=== PATIENT | female | born 1980 | race Two or more races ===

== ENCOUNTER 2017-09-06 | Day surgery (SDC) | END 2017-09-06 23:18 | disposition home or self-care (01) ==

== ENCOUNTER 2018-01-26 21:33 | Emergency (ER) | payer BC ==
[~2018-01-26] VITALS: Ht 165.1 cm; Wt 61.2 kg
[~2018-01-26 21:33] MED LIST: FOLI1; MULVITA; YAZ
[2018-01-26] MEDS ORDERED: PROG100 PO (21:47)
[2018-01-26 22:07] LABS: BASOPHILS ABSOLUTE AUTO 0.03 K/mm3 (0.00-0.23); BASOPHILS PERCENT AUTO 0 % (0-2); EOSINOPHILS ABSOLUTE AUTO 0.08 K/mm3 (0.00-0.68); EOSINOPHILS PERCENT AUTO 1 % (0-6); Hematocrit 38.5 % (33.0-51.0); Hemoglobin 12.7 g/dL (11.5-16.0); IMMATURE GRAN ABSOLUTE AUTO 0.01 K/mm3 (0.00-0.10); IMMATURE GRAN PERCENT AUTO 0 % (0-1); LYMPHOCYTES ABSOLUTE AUTO 1.41 K/mm3 (0.84-5.20); LYMPHOCYTES PERCENT AUTO 20 % (21-46); MONOCYTES PERCENT AUTO 7 % (4-13); Mean Corpuscular Volume 85 fL (80-100); Mean Platelet Volume 12.2 fL (9.1-12.4); NEUTROPHILS PERCENT AUTO 71 % (41-73); Platelet Count 148 K/mm3 (150-400); RDW Coefficient Variation 12.2 % (11.7-14.2); RDW Standard Deviation 37.6 fL (35.1-46.3); Red Blood Cell Count 4.54 M/mm3 (3.80-5.20); White Blood Cell Count 7.03 K/mm3 (4.00-11.30)
[2018-01-26 22:31] LABS: Alanine Aminotransfer (ALT/SGP 12 U/L (12-78); Albumin, Blood 3.7 g/dL (3.4-5.0); Albumin/Globulin Ratio 0.9 (0.8-1.8); Alk Phos 43 U/L (50-136); Anion Gap 8 mmol/L (6-16); Aspartate Aminotrans (AST/SGOT 17 U/L (12-37); Bilirubin, Total 0.6 mg/dL (0.1-1.0); Blood Urea Nitrogen 13 mg/dL (8-24); Bun/Creatinine Ratio 15.5 (12.0-20.0); CO2, Blood 28 mmol/L (21-32); Calcium, Blood 8.9 mg/dL (8.5-10.1); Chloride, Blood 103 mmol/L (98-108); Creatinine, Blood 0.84 mg/dL (0.40-1.00); Glomerular Filtration Rate >60 (60-); Glucose, Blood 81 mg/dL (70-99); Potassium, Blood 3.4 mmol/L (3.5-5.5); Sodium, Blood 139 mmol/L (136-145); Total Protein, Blood 7.7 g/dL (6.4-8.2)
[2018-01-26 23:02] LABS: Beta HCG, Quantitative, Serum 98188 mIU/mL (0-3)
[2018-01-26 23:46] LABS: Source, Urine Clean Catch
[2018-01-26 23:54] LABS: Bilirubin, Urine Neg (Neg); Blood, Urine 3+ (Neg); Glucose Qualitative, Urine Neg (Neg); Ketones, Urine Neg (Neg); Leukocyte Esterase, Urine Neg (Neg); Nitrite, Urine Neg (Neg); Protein, Urine Neg (Neg); Urobilinogen, Urine NORM (Normal)
[2018-01-27] LABS: Appearance, Urine Clear (Clear); Bacteria Rare /hpf; Color, Urine Yellow (P-Yellow); Red Blood Cells, Urine 0-2 /hpf (0-2); Squamous Epithelial Cells Few /hpf (Few); White Blood Cells, Urine 0-2 /hpf (0-5)
== END 2018-01-27 00:40 | disposition home or self-care (01) ==
LOC: ER 21:33
PROVIDERS: Emergency Medicine
DX: O20.9 Hemorrhage in early pregnancy, unspecified (principal); Z88.2 Allergy status to sulfonamides; Z91.040 Latex allergy status; Z79.899 Other long term (current) drug therapy; Z3A.13 13 weeks gestation of pregnancy
CPT/HCPCS: 36415; 76801; 76817; 80053; 81001; 84702; 85025; 86900; 86901; 99284-25

== ENCOUNTER 2018-08-07 05:10 | Inpatient (IN) | payer BC, MEDICARE ==
[~2018-08-07] VITALS: Ht 165.1 cm; Wt 70.0 kg
[~2018-08-07 05:10] MED LIST changes: +PROG100 PO
[2018-08-07] MEDS ORDERED: Verotin-Gr Cap1 EACH PO (05:46)
[2018-08-07 05:50] LABS: BASOPHILS ABSOLUTE AUTO 0.03 K/mm3 (0.00-0.23); BASOPHILS PERCENT AUTO 0 % (0-2); EOSINOPHILS ABSOLUTE AUTO 0.03 K/mm3 (0.00-0.68); EOSINOPHILS PERCENT AUTO 0 % (0-6); Hematocrit 39.6 % (33.0-51.0); IMMATURE GRAN ABSOLUTE AUTO 0.04 K/mm3 (0.00-0.10); IMMATURE GRAN PERCENT AUTO 1 % (0-1); LYMPHOCYTES ABSOLUTE AUTO 1.01 K/mm3 (0.84-5.20); LYMPHOCYTES PERCENT AUTO 15 % (21-46); MONOCYTES ABSOLUTE AUTO 0.55 K/mm3 (0.16-1.47); MONOCYTES PERCENT AUTO 8 % (4-13); Mean Corpuscular HGB 28.7 pg (26.0-34.0); Mean Corpuscular HGB Conc 32.8 g/dL (31.5-36.5); Mean Corpuscular Volume 87 fL (80-100); Mean Platelet Volume 12.6 fL (9.1-12.4); NEUTROPHILS ABSOLUTE AUTO 5.28 K/mm3 (1.96-9.15); NEUTROPHILS PERCENT AUTO 76 % (41-73); Platelet Count 135 K/mm3 (150-400); RDW Coefficient Variation 12.9 % (11.7-14.2); Red Blood Cell Count 4.53 M/mm3 (3.80-5.20); White Blood Cell Count 6.94 K/mm3 (4.00-11.30)
--- NOTE | 2018-08-08 07:15 | NUR ---
ASSUMED PT CARE, [facility] SECOND NURSE FOR NB, THEN TOOK OVER MOM. NB VIGORUS, SKIN TO SKIN, AT BR WELL.
--- NOTE | 2018-08-08 11:15 | NUR ---
REPORT TO KATE TEJEDA. PT RESTING, ATTEMPTED TO GET UP TP VOID, PT'S LEGS STILL NOT STRONG YET. INSTRUCTED PT TO CAALL WHEN FULL SENSATION IS BACK & WE WILL TRY AGAIN.
--- NOTE | 2018-08-08 13:45 | NUR ---
PT OVERALL DOING WELL. UP TO SHOWER. LINENS/ PAD CHANGED. FIRST PP VOID. REPORTS MINIMAL PAIN 3/10 AND DENIES NAUSEA. WILL CONTINUE TO MONITOR.
[2018-08-09 05:52] LABS: Hematocrit 35.8 % (33.0-51.0); Hemoglobin 11.6 g/dL (11.5-16.0); Mean Corpuscular HGB 29.1 pg (26.0-34.0); Mean Corpuscular HGB Conc 32.4 g/dL (31.5-36.5); Mean Platelet Volume 12.5 fL (9.1-12.4); Platelet Count 131 K/mm3 (150-400); RDW Coefficient Variation 12.6 % (11.7-14.2); RDW Standard Deviation 41.6 fL (35.1-46.3); Red Blood Cell Count 3.99 M/mm3 (3.80-5.20); White Blood Cell Count 14.68 K/mm3 (4.00-11.30)
[2018-08-09 05:56] LABS: Mean Corpuscular Volume 90 fL (80-100)
--- NOTE | 2018-08-09 15:10 | NUR ---
DISCHARGED INSTRUCTIONS, WRITTEN AND VERBAL, GIVEN TO PT. ALL QUESTIONS ANSWERED. ALL PERSONAL BELONGINGS RETURNED. IV DISCONTINUED. PT IS DISCHARGED TO HOME, DRIVEN BY BLESSING.
== END 2018-08-09 15:25 | disposition home or self-care (01) | DRG 807 ==
LOC: OBS 05:10 → BC 05:23
PROVIDERS: ADMIT Obstetrics & Gynecology
PROC: 3E0P7VZ Introduction of Hormone into Female Reproductive, Via Natural or Artificial Opening (ICD-10-PCS; 2018-08-07)
PROC: 10E0XZZ Delivery of Products of Conception, External Approach (ICD-10-PCS; principal; 2018-08-08)
PROC: 0KQM0ZZ Repair Perineum Muscle, Open Approach (ICD-10-PCS; 2018-08-08)
PROC: 3E0R3BZ Introduction of Anesthetic Agent into Spinal Canal, Percutaneous Approach (ICD-10-PCS; 2018-08-08)
DX: O48.0 Post-term pregnancy (principal); Z37.0 Single live birth; O70.1 Second degree perineal laceration during delivery; Z3A.40 40 weeks gestation of pregnancy; Z88.0 Allergy status to penicillin; Z88.2 Allergy status to sulfonamides; Z91.040 Latex allergy status
CPT/HCPCS: 36415; 36416; 51702; 85025; 85027; 85460; 96372; J1885; J2210; J2405; J2590; J2790; J7120

== ENCOUNTER → 2021-09-05 | Outpatient (CLI) | payer BC, MEDICARE ==
[~2021-09-05] MED LIST changes: +Verotin-Gr Cap1 EACH PO
== END | disposition home or self-care (01) ==
LOC: LAB SHORT 11:12
DX: L30.8 Other specified dermatitis (principal)
CPT/HCPCS: 88305; 88312; 88313

== ENCOUNTER 2024-06-04 09:41 | Day surgery (SDC) | payer OTHER ==
[~2024-06-04] VITALS: Ht 165.1 cm; Wt 58.5 kg
[~2024-06-04 09:41] MED LIST changes: +ALBU90OI; +ELIQUIS5 M2; +Lactated Ringer's 1,000 ML IV ONE
[2024-06-04] MEDS ORDERED: Dexamethasone Sod Phos 10 MG/ML 1ML VIAL ONE (09:53)
[2024-06-04] MEDS ORDERED: FentaNYL Citrate 50 MCG/ML 2 ML Injection ONE (09:53)
[2024-06-04] MEDS ORDERED: propofoL 20 ML IV ONE (09:53)
[2024-06-04] MEDS ORDERED: Ondansetron HCl 2 MG / ML 2ML Vial ONE (09:53)
[2024-06-04] MEDS ORDERED: Ketorolac Tromethamine 30mg Vial ONE (09:53)
--- NOTE | 2024-06-04 09:59 | NUR ---
PER PT WAKES VERY SICK AND DIZZY
[2024-06-04] MEDS ORDERED: MULTI-VITAMIN (10:13)
[2024-06-04] MEDS ORDERED: PROBIOTIC1 EA14 (10:13)
[2024-06-04] MEDS ORDERED: Lactated Ringer's 1,000 ML IV ONE (10:27)
[2024-06-04] MEDS ORDERED: CeFAZolin Sodium 2,000 MG VIAL ONE (10:29)
[2024-06-04] MEDS ORDERED: NS 50 ML IV ONE (10:30)
[2024-06-04] MEDS ORDERED: Midazolam HCl 1MG / ML 2ML Vial ONE (10:46)
[2024-06-04] MEDS ORDERED: Scopolamine Hydrobromide Patch ONE (10:46)
[2024-06-04 12:16] VITALS: BP 113/64
== END 2024-06-04 13:28 | disposition home or self-care (01) ==
LOC: ORSCSDS 09:41
PROVIDERS: Obstetrics & Gynecology
PROC: 0U5B8ZZ Destruction of Endometrium, Via Natural or Artificial Opening Endoscopic (ICD-10-PCS; principal; 2024-06-04 11:00)
DX: N92.1 Excessive and frequent menstruation with irregular cycle (principal); Z86.718 Personal history of other venous thrombosis and embolism; Z79.01 Long term (current) use of anticoagulants; Z79.899 Other long term (current) drug therapy; J45.909 Unspecified asthma, uncomplicated
CPT/HCPCS: 88305; A9270; J0690; J1100; J1885; J2250; J2405; J2704; J3010; J7120

== ENCOUNTER → 2024-08-20 | Outpatient (CLI) | payer OTHER ==
[~2024-08-20] MED LIST changes: -Lactated Ringer's 1,000 ML IV ONE; +MULTI-VITAMIN; +PROBIOTIC1 EA14
== END ==
LOC: LAB 17:11 → LAB SHORT 17:11
DX: M79.671 Pain in right foot (principal); Z86.718 Personal history of other venous thrombosis and embolism
CPT/HCPCS: 84550; 85379